=== PATIENT | male | born 1995 | race Hispanic/Latino ===

== ENCOUNTER 2023-08-02 00:07 | Emergency (ER) | payer OTHER ==
[~2023-08-02] VITALS: Ht 180.3 cm; Wt 113.4 kg
[2023-08-02] MEDS ORDERED: DIPH,PERTUSS(ACELL),TET VAC/PF 0.5 ML VIAL IM ONE (01:00)
[2023-08-02] MEDS: IBUPROFEN 800 MG TAB PO ONE (01:25)
[2023-08-02] MEDS: CEFTRIAXONE 1G VIAL IVPB ONE (01:25)
[2023-08-02] MEDS: VANCOMYCIN KIT 1 GM/250 ML IV.KIT IV ONE (01:52)
[2023-08-02] MEDS ORDERED: AMOX1TAB16 PO (02:05)
[2023-08-02] MEDS ORDERED: IBUP-2071 PO (02:05)
[2023-08-02] MEDS: LIDOCAINE HCL 1% 20 ML VIAL ONE (02:18)
[2023-08-02] MEDS: TETANUS/DIPHTHERIA TOXOID [ADULT] 0.5 ML VIAL IM ONE (02:21)
[2023-08-02 04:20] VITALS: BP 110/82; PULSE 72; RESP 18; O2SAT 100
== END 2023-08-02 04:21 | disposition home or self-care (01) ==
LOC: EDH 00:07
DX: S51.012A Laceration without foreign body of left elbow, initial encounter (principal); Y04.1XXA Assault by human bite, initial encounter; Y93.89 Activity, other specified; Y92.89 Other specified places as the place of occurrence of the external cause; Y99.8 Other external cause status
CPT/HCPCS: 99284; 96365; 96367; 96366; 12013; 90714; 73080; 90471; J0696; J3370; 96374